=== PATIENT | male | born 1990 | race Caucasian/White ===

== ENCOUNTER 2017-06-09 11:18 | Emergency (ER) | payer MEDICAID ==
[2017-06-09 18:02] LABS: TROPONIN-I < 0.012 ng/ml (0.00-0.12)
== END 2017-06-09 18:34 | disposition home or self-care (01) ==
LOC: FTE 11:18
DX: R07.89 Other chest pain (principal); R05 Cough
CPT/HCPCS: 71045; 84484; 93005; 99285-25

== ENCOUNTER 2017-07-07 05:28 | Emergency (ER) | payer OTHER, MEDICAID ==
[2017-07-07] MEDS: ONDANSETRON (ODT) 4 MG TAB ODT (07:54)
[2017-07-07] MEDS: ACETAMINOPHEN 325 MG TAB PO (07:56)
== END 2017-07-07 10:02 | disposition home or self-care (01) ==
LOC: FTE 05:28
DX: J06.9 Acute upper respiratory infection, unspecified (principal)
CPT/HCPCS: 99284; Z7502

== ENCOUNTER 2018-03-31 02:05 | Emergency (ER) | payer SELFPAY, OTHER ==
[2018-03-31 03:43] LABS: ADD MAN DIFF? NO
[2018-03-31] MEDS: DIPHENHYDRAMINE 50 MG INJ IV (03:43)
[2018-03-31] MEDS: SOD CHLORIDE 0.9% 1,000 ML IV (03:43)
[2018-03-31] MEDS: METOCLOPRAMIDE 10 MG INJ IV (03:43)
[2018-03-31] MEDS: KETOROLAC 30 MG INJ IV (03:44)
[2018-03-31] MEDS: ACETAMINOPHEN 500 MG TAB PO (03:44)
[2018-03-31 03:45] LABS: BASOPHILS % 0.1 % (0.0-2.0); EOSINOPHILS # 0.1 10^3/ul (0.0-0.5); EOSINOPHILS % 0.8 % (0.0-7.0); HEMATOCRIT 46.3 % (42.0-52.0); HEMOGLOBIN 15.7 g/dl (14.0-18.0); LYMPHOCYTES # 0.8 10^3/ul (0.8-2.9); LYMPHOCYTES % 9.6 % (15.0-51.0); MEAN CORPUSCULAR HEMOGLOBIN 30.7 pg (29.0-33.0); MEAN CORPUSCULAR HGB CONC 33.9 g/dl (32.0-37.0); MEAN CORPUSCULAR VOLUME 90.4 fl (82.0-101.0); MONOCYTE # 0.7 10^3/ul (0.3-0.9); MONOCYTES % 8.7 % (0.0-11.0); NEUTROPHIL # 6.4 10^3/ul (1.6-7.5); NEUTROPHILS % 80.3 % (39.0-77.0); PLATELET COUNT 152 10^3/UL (140-415); RED BLOOD COUNT 5.12 10^6/ul (4.70-6.10); RED CELL DISTRIBUTION WIDTH 12.4 % (11.5-14.5)
[2018-03-31 03:45] LABS: WHITE BLOOD COUNT 7.9 10^3/ul (4.8-10.8)
[2018-03-31 04:02] LABS: ANION GAP 11 (5-13); BLOOD UREA NITROGEN 16 mg/dl (7-20); CALCIUM 9.4 mg/dl (8.4-10.2); CARBON DIOXIDE 28 mmol/L (21-31); CHLORIDE 101 mmol/L (97-110); CREATININE 0.95 mg/dl (0.61-1.24); Estimated GFR > 60 mL/min (>60); GLUCOSE 111 mg/dl (70-220); POTASSIUM 4.3 mmol/L (3.5-5.1); SODIUM 140 mmol/L (135-144)
[2018-03-31 04:03] LABS: PROTIME 12.2 Sec (11.9-14.9)
[2018-03-31 04:04] LABS: PARTIAL THROMBOPLASTIN TIME 37.6 Sec (23.0-35.0)
== END 2018-03-31 04:41 | disposition home or self-care (01) ==
LOC: FTE 02:05
DX: B34.9 Viral infection, unspecified (principal)
CPT/HCPCS: 36415; 80048; 85025; 85610; 85730; 87400; 96361; 96374; 96375; 99284-25